=== PATIENT | female | born 1945 | race Caucasian/White ===

== ENCOUNTER → 2018-04-22 08:39 | Outpatient (CLI) | payer OTHER, SELFPAY ==
[2018-04-22 10:43] LABS: Creatinine Urine Random 138.9 mg/dL
[2018-04-22 10:44] LABS: BUN Creatinine Ratio 15.6 (6-22); Blood Urea Nitrogen 14 mg/dL (7-17); Calcium 9.5 mg/dL (8.4-10.2); Carbon Dioxide 28 mmol/L (22-32); Chloride 104 mmol/L (98-107); Estimated Glomerular Filt Rate > 60.0 mL/min (>60); Glucose 129 mg/dL (80-110); HEMOLYSIS < 15 (0-50); Potassium 3.9 mmol/L (3.4-5.1); Sodium 144 mmol/L (137-145)
[2018-04-22 10:50] LABS: Microalbumi Creatinin Ratio Ur 8.6 ug/mg CR (<30); Microalbumin Urine Random 1.2 mg/dL (0-1.6)
[2018-04-22 11:15] LABS: TSH w/ Reflex to FT4 1.07 uIU/mL (0.47-4.68)
== END ==
PROVIDERS: Family Provider Family Medicine; Visit Provider Family Medicine
DX: E03.9 Hypothyroidism, unspecified (principal); I10 Essential (primary) hypertension
CPT/HCPCS: 36415; 80048; 82043; 82570; 84443

== ENCOUNTER → 2018-05-15 15:03 | Outpatient (CLI) | payer OTHER, SELFPAY ==
[2018-05-15 16:35] LABS: BUN Creatinine Ratio 21.4 (6-22); Blood Urea Nitrogen 15 mg/dL (7-17); Estimated Glomerular Filt Rate > 60.0 mL/min (>60)
== END ==
PROVIDERS: Family Provider Family Medicine; PCP Family Medicine; Visit Provider Specialist
DX: C70.0 Malignant neoplasm of cerebral meninges (principal)
CPT/HCPCS: 36415; 82565; 84520

== ENCOUNTER → 2018-10-02 13:05 | Outpatient (CLI) | payer OTHER, SELFPAY ==
[2018-10-02 15:19] LABS: Free T3, Triiodothyronine Free 2.87 pg/mL (2.77-5.27); Free T4, Direct Thyroxine 1.18 ng/dL (0.78-2.19)
[2018-10-02 15:33] LABS: Thyroid Stimulating Hormone 0.49 uIU/mL (0.47-4.68)
== END ==
PROVIDERS: Family Provider Family Medicine; PCP Family Medicine; Visit Provider Family Medicine
DX: E03.9 Hypothyroidism, unspecified (principal)
CPT/HCPCS: 36415; 84439; 84443; 84481

== ENCOUNTER → 2018-12-21 10:04 | Outpatient (CLI) | payer OTHER, SELFPAY ==
--- NOTE | 2018-12-21 | DI.US.S_ITS ---
PROCEDURE: US RENAL COMPLETE INDICATIONS: Benign lipomatous neoplasm of kidney TECHNIQUE: Real-time scanning was performed of the kidneys and bladder, with image documentation. COMPARISON: [facility], , RENAL COMPLETE, 08/27/2015, 10:27. [facility], , RENAL COMPLETE, 09/27/2016, 11:31. FINDINGS: Kidneys: Kidneys are normal in size. Right kidney measures 10.0 cm long; left kidney measures 10.0 cm long. Right renal cortical thickness is 1.3 cm; left renal cortical thickness is 1.2 cm. Renal cortical echotexture is normal. No hydronephrosis or nephrolithiasis. No suspicious solid mass lesions. Presumed angiomyolipoma again seen involving the mid to superior pole the right kidney unchanged measuring 1.4 x 0.9 x 1.2 cm. Bladder: Pre-void bladder volume is 161 mL. Post-void residual is 22 mL. Pre-void images demonstrate no intraluminal masses or stones. On pre-void images, bilateral ureteral jets are noted with color Doppler interrogation. (Of note, ureteral jets may not be detectable in up to 25% of cases due to insufficient differences in specific gravity between ureteral and bladder urine). Miscellaneous: No free pelvic fluid. 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 Dictated by: Kyle VILLASEÑOR Interpreted: Ammy Miles MD on 12/21/2018 at 10:46 Approved by: Ammy Miles M.D. on 12/21/2018 at 14:46
== END ==
PROVIDERS: PCP Internal Medicine; Visit Provider Urology
DX: D17.71 Benign lipomatous neoplasm of kidney (principal)
CPT/HCPCS: 76770

== ENCOUNTER → 2019-02-15 10:13 | Outpatient (CLI) | payer OTHER, SELFPAY ==
--- NOTE | 2019-02-16 08:58 | P.PCN_ITS ---
Cardiac Stress Test Report Referral & Results Date Patient Seen: 02/16/19 Time Patient Seen: 08:30 Requesting provider: Drea Lucas Indication: Chest pain Rest ECG: NSR Procedure Note: Today following both written and verbal informed consent the patient was exercised according to a standard Ron protocol patient went for a total of 5 minutes 50 seconds achieving a maximum heart rate of 149 maximum systolic blood pressure of 220. This is approximately 7.0 METS. Exercise was terminated at this point because of fatigue. Patient was also given Cardiolite through a previously started Hep-Lock IV by the nuclear spectroscopist approximately 1 minute prior to the cessation of exercise. No signs or symptoms of angina. [address] deviations diffusely, resolving rapidly with rest. Functional activity impairment-5% on the active scale. Patient was quite hypertensive during the exam. Occasional PVCs during rest. Impression: Low probability for ischemia. Will await perfusion imaging. Please note: Actual ECG tracings can be found in the PACS system.
--- NOTE | 2019-02-17 06:46 | DI.NM.S_ITS ---
DATE OF SERVICE: 02/15/2019 PROCEDURE: Exercise perfusion study. INDICATIONS: Chest pain and hypertension. RADIOPHARMACEUTICAL: 25.1 mCi technetium-99m Myoview IV was injected at stress and 27.4 mCi technetium-99m Myoview IV was injected at rest. CARDIAC STRESS: The patient underwent an exercise perfusion study under the supervision of an attending staff. She walked on Ron protocol for 5 minutes 50 seconds, achieved 7 METs of workload, 102% of target heartrate. Baseline blood pressure 132/80. Peak blood pressure 220/80, suggestive of hypertensive blood pressure response. The patient felt fatigued. Baseline EKG revealed sinus rhythm. Stress EKG revealed some nonspecific up-sloping ST depression in inferolateral leads, which got resolved in recovery within 1 minute. No significant arrhythmias seen. RAW DATA: Breast shadow was seen. GATED STUDY: Stress LV ejection fraction 73% without any obvious wall motion abnormalities. Resting end-diastolic volume 78 mL. No transient ischemic dilatation. TID ratio 0.90, which is within normal limits. Lung/heart ratio 0.35, which is within normal limits. MYOCARDIAL PERFUSION: Resting supine images revealed small-sized mildly decreased perfusion of the anterior wall. Stress supine and stress prone images revealed normal myocardial perfusion. CONCLUSION: I will call this study a normal myocardial perfusion study without any convincing ischemia infarction. Overall, this is a low-risk myocardial perfusion study. The patient had a myocardial study in February 2009. At that time, also, she had a normal myocardial perfusion.Baseline blood pressure 132/80. Peak blood pressure 220/80, suggestive of hypertensive blood pressure response. Radha Morrissey - CARLEE/otilia/ts doc#: [id number]/job#: [id number] dd: 02/16/2019 16:27:00 dt: 02/17/2019 06:34:00 DICTATING MD/COPIES TO: Vianca Mackey MD COPIES MNE: WES
== END ==
PROVIDERS: PCP Internal Medicine; Visit Provider Internal Medicine
DX: R07.9 Chest pain, unspecified (principal); I10 Essential (primary) hypertension
CPT/HCPCS: 78452; 93016; 93017; 93018; A9502

== ENCOUNTER → 2019-05-29 15:06 | Outpatient (CLI) | payer OTHER, SELFPAY ==
[2019-05-29 17:14] LABS: BUN Creatinine Ratio 18.9 (6-22); Blood Urea Nitrogen 17 mg/dL (7-17); Estimated Glomerular Filt Rate > 60.0 mL/min (>60)
== END ==
PROVIDERS: PCP Internal Medicine; Visit Provider Specialist
DX: C70.0 Malignant neoplasm of cerebral meninges (principal)
CPT/HCPCS: 36415; 82565; 84520

== ENCOUNTER → 2019-06-13 13:47 | Outpatient (CLI) | payer OTHER, SELFPAY | PROVIDERS: PCP Internal Medicine; Visit Provider Internal Medicine | DX: M85.88 Other specified disorders of bone density and structure, other site (principal); Z78.0 Asymptomatic menopausal state; E07.9 Disorder of thyroid, unspecified; Z82.62 Family history of osteoporosis | CPT/HCPCS: 77080; 77081 ==

== ENCOUNTER → 2019-06-27 15:23 | Outpatient (CLI) | payer OTHER, SELFPAY ==
[2019-06-27 17:17] LABS: Blood Urea Nitrogen 18 mg/dL (7-17); Estimated Glomerular Filt Rate > 60.0 mL/min (>60)
== END ==
PROVIDERS: Family Provider Internal Medicine; PCP Internal Medicine; Visit Provider Specialist
DX: C70.0 Malignant neoplasm of cerebral meninges (principal)
CPT/HCPCS: 36415; 82565; 84520

== ENCOUNTER → 2020-02-07 10:23 | Outpatient (CLI) | payer OTHER, SELFPAY ==
[2020-02-07 12:02] LABS: Alanine Aminotransferase 21 IU/L (<35); Albumin 4.1 g/dL (3.5-5.0); Albumin Globulin Ratio 1.5 (1.0-2.8); Alkaline Phosphatase 66 U/L (38-126); Aspartate Aminotransferase 34 IU/L (14-36); Bilirubin Total 0.7 mg/dL (0.2-1.3); Blood Urea Nitrogen 21 mg/dL (7-17); Calcium 9.3 mg/dL (8.4-10.2); Carbon Dioxide 27 mmol/L (22-32); Chloride 105 mmol/L (98-107); Cholesterol 215 mg/dL (140-199); Estimated Glomerular Filt Rate > 60.0 mL/min (>60); Globulin 2.7 g/dL (1.7-4.1); Glucose 95 mg/dL (80-110); HDL Cholesterol 48 mg/dL (40-60); HEMOLYSIS < 15 (0-50); LDL Cholesterol Calculated 139 mg/dL (<100); Sodium 139 mmol/L (137-145); Total Protein 6.8 g/dL (6.3-8.2); Triglycerides 138 mg/dL (35-150)
[2020-02-07 13:00] LABS: Free T4, Direct Thyroxine 1.36 ng/dL (0.78-2.19)
== END ==
PROVIDERS: Family Provider Internal Medicine; PCP Internal Medicine; Referring Provider Internal Medicine; Visit Provider Internal Medicine
DX: C70.0 Malignant neoplasm of cerebral meninges (principal); I10 Essential (primary) hypertension; E78.5 Hyperlipidemia, unspecified; E03.9 Hypothyroidism, unspecified
CPT/HCPCS: 36415; 80053; 80061; 82565; 84439; 84443; 84520

== ENCOUNTER → 2020-06-24 07:40 | Outpatient (CLI) | payer OTHER, SELFPAY ==
[2020-06-24 09:29] LABS: TSH w/ Reflex to FT4 3.46 uIU/mL (0.47-4.68)
== END ==
PROVIDERS: Family Provider Internal Medicine; PCP Internal Medicine; Referring Provider Internal Medicine; Visit Provider Internal Medicine
DX: E03.9 Hypothyroidism, unspecified (principal)
CPT/HCPCS: 36415; 84443

== ENCOUNTER → 2020-07-31 14:49 | Outpatient (ROUT) | payer OTHER, SELFPAY ==
[2020-07-31 14:56] LABS: Add Manual Diff / Slide Review NO; Basophils Absolute Auto 0 /uL (0-100); Basophils Percent Auto 0.4 % (0-2); Eosinophils Absolute Auto 200 /uL (0-450); Eosinophils Percent Auto 2.9 % (2-4); Hematocrit 37.3 % (36-46); Hemoglobin 12.4 g/dL (12.0-16.0); Lymphocytes Absolute Auto 1000 /uL (1100-4500); Lymphocytes Percent Auto 16.3 % (25-40); Mean Corpuscular HGB Conc 33.2 % (30-36); Mean Corpuscular Hemoglobin 31.8 PG (26-34); Mean Corpuscular Volume 95.8 fL (80-100); Monocytes Absolute Auto 500 /uL (0-900); Monocytes Percent Auto 8.9 % (3-14); Neutrophils Absolute Auto 4300 /uL (1500-7000); Neutrophils Percent Auto 71.5 % (50-75); Platelet Count 284 X10^3/uL (150-400); Red Cell Distribution Width 13.2 % (11.6-14.8); White Blood Cell Count 6.1 X10^3/uL (4.5-11.0)
[2020-07-31 15:09] LABS: Alanine Aminotransferase 21 IU/L (<35); Albumin 3.9 g/dL (3.5-5.0); Albumin Globulin Ratio 1.4 (1.0-2.8); Alkaline Phosphatase 60 U/L (38-126); Aspartate Aminotransferase 32 IU/L (14-36); BUN Creatinine Ratio 19.8 (6-22); Bilirubin Total 0.6 mg/dL (0.2-1.3); Blood Urea Nitrogen 17 mg/dL (7-17); Calcium 9.8 mg/dL (8.4-10.2); Carbon Dioxide 31 mmol/L (22-32); Chloride 104 mmol/L (98-107); Cholesterol 241 mg/dL (140-199); Estimated Glomerular Filt Rate > 60.0 mL/min (>60); Globulin 2.8 g/dL (1.7-4.1); Glucose 54 mg/dL (80-110); HDL Cholesterol 63 mg/dL (40-60); HEMOLYSIS < 15 (0-50); LDL Cholesterol Calculated 151 mg/dL (<100); Magnesium 1.8 mg/dL (1.6-2.3); Potassium 4.2 mmol/L (3.4-5.1); Sodium 140 mmol/L (137-145); Total Protein 6.7 g/dL (6.3-8.2); Triglycerides 134 mg/dL (35-150)
[2020-07-31 15:35] LABS: TSH w/ Reflex to FT4 3.31 uIU/mL (0.47-4.68)
== END ==
PROVIDERS: Family Provider Internal Medicine; PCP Internal Medicine; Visit Provider Physician Assistant
DX: R00.2 Palpitations (principal); I10 Essential (primary) hypertension; E78.5 Hyperlipidemia, unspecified; E03.9 Hypothyroidism, unspecified
CPT/HCPCS: 80053; 80061; 83735; 84443; 85025

== ENCOUNTER → 2020-08-07 13:40 | Outpatient (CLI) | payer OTHER, SELFPAY ==
--- NOTE | 2020-08-27 08:50 | P.HOLT.S_ITS ---
Data Deliverables Manager Report Referral & Results Date Patient Seen: 08/07/20 Requesting provider: Debbie Lima Indication: Palpitations Duration of monitoring (days): 7 Diary information: There were 29 patient triggered events and 14 patient diary entries. All of these patient events were associated with (within 45 seconds) sinus rhythm and PACs, no other dysrhythmias were identified Data: Minimum heart rate was 45 beats per minute at 02:38 on 08/10/2020 Maximum sinus heart rate was 144 beats per minute at 17:28 on 08/07/2020 Maximum overall heart rate was 176 beats per minute at 15:41 on 08/12/2020 during a 4 beat run of SVT Less than 1% of identified beats rather ventricular supraventricular ectopic in origin There were 36 runs of SVT with the longest lasting 20 beats at a rate of 106 beats per minute which suggest more atrial tachycardia than true SVT 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 Patient appears to have PACs as potential source of sensation of palpitations based on patient events as above. No other significant dysrhythmias identified on this study.
== END ==
PROVIDERS: Family Provider Internal Medicine; PCP Physician Assistant; Referring Provider Physician Assistant; Visit Provider Physician Assistant
DX: R00.2 Palpitations (principal)
CPT/HCPCS: 93246; 93248

== ENCOUNTER → 2021-02-09 10:43 | Outpatient (CLI) | payer OTHER, SELFPAY ==
--- NOTE | 2021-02-09 | DI.US.S_ITS ---
PROCEDURE: US RENAL COMPLETE INDICATIONS: AML TECHNIQUE: Real-time scanning was performed of the kidneys and bladder, with image documentation. COMPARISON: [facility], , RENAL COMPLETE, 12/21/2018, 10:17. FINDINGS: Kidneys: Kidneys are normal in size. Right kidney measures 9.2 cm long; left kidney measures 10 cm long. Right renal cortical thickness is 1.8 cm; left renal cortical thickness is 1.4 cm. Renal cortical echotexture is normal. No hydronephrosis or nephrolithiasis. Again noted is an echogenic lesion of the upper pole of the right kidney, currently measuring approximately 1.3 x 0.7 x 1.0 cm, and previously measuring approximately 1.4 x 0.9 x 1.2 cm. No new or increasing masses are identified. Bladder: Pre-void bladder volume is 78 mL. Post-void residual is 4 mL. Pre-void images demonstrate no intraluminal masses or stones. On pre-void images, no ureteral jets are noted with color Doppler interrogation. (Of note, ureteral jets may not be detectable in up to 25% of cases due to insufficient differences in specific gravity between ureteral and bladder urine). Miscellaneous: No free pelvic fluid. IMPRESSION: Stable size of probable angiomyolipoma of the upper pole of the right kidney. Dictated by: Donovan Blair M.D. on 02/09/2021 at 17:07 Approved by: Donovan Blair M.D. on 02/09/2021 at 17:10
== END ==
PROVIDERS: Family Provider Internal Medicine; PCP Internal Medicine; Referring Provider Urology; Visit Provider Urology
DX: D17.71 Benign lipomatous neoplasm of kidney (principal)
CPT/HCPCS: 76770

== ENCOUNTER → 2021-02-12 11:35 | Outpatient (CLI) | payer OTHER, SELFPAY ==
[2021-02-12 12:28] LABS: BUN Creatinine Ratio 26.5 (6-22); Blood Urea Nitrogen 22 mg/dL (7-17); Estimated Glomerular Filt Rate > 60.0 mL/min (>60)
== END ==
PROVIDERS: Family Provider Internal Medicine; PCP Internal Medicine; Referring Provider Specialist; Visit Provider Specialist
DX: C70.0 Malignant neoplasm of cerebral meninges (principal)
CPT/HCPCS: 36415; 82565; 84520

== ENCOUNTER → 2021-04-13 09:57 | Outpatient (CLI) | payer OTHER, SELFPAY ==
[2021-04-13 13:41] LABS: COVID19 -Nasal RAPID Negative (Negative)
== END ==
PROVIDERS: Family Provider Internal Medicine; PCP Internal Medicine; Visit Provider Nurse Practitioner Family
DX: Z20.822 Contact with and (suspected) exposure to COVID-19 (principal); Z01.812 Encounter for preprocedural laboratory examination
CPT/HCPCS: 87635; C9803

== ENCOUNTER 2021-04-14 11:47 | Day surgery (SDC) | payer OTHER, SELFPAY ==
[2021-04-14 13:14] VITALS: BP 147/77; PULSE 60; RESP 18; TEMP 36.6; O2SAT 99; BMI 27.4
[2021-04-14] MEDS: SODIUM CHLORIDE 0.9% 1,000 ML 125 ML IV (13:33)
--- NOTE | 2021-04-14 15:28 | P.OP.ENDO_ITS ---
Operative Date/Time/Diagnoses Date of procedure: 04/14/21 Time of procedure: 15:28 Pre-op diagnosis: Chest pain and colon cancer screening Post-op diagnosis: same Procedure & Clinicians Study performed: EGD and colonoscopy Same procedure as scheduled: Yes Indications: Chest pain and colon cancer screening Surgeon: Rodrigo Stone Procedure Notes SCOAP/Timeout: Done Procedure in detail: After the risks and benefits were explained, written and verbal informed consent was obtained. The patient was brought into the procedure room and placed into the left lateral decubitus position. Please see nurse graduation coach sedation notes. scope was introduced into the mouth through the bite block and advanced under direct visualization to the 2nd portion of the duodenum. The scope was slowly withdrawn carefully examining the mucosa for any defects or lesions. Retroflexed views were accomplished in the stomach. The stomach was decompressed, the scope was then removed from the patient who tolerated the procedure well. Patient was then turned around digital rectal examination accomplished no significant pathology appreciated scope was introduced into the rectum and advanced to the cecum as identified by the appendiceal orifice and ileocecal valve. The scope was slowly withdrawn to carefully examine the mucosa for any defects or lesions. Multiple direct views were made through the dentate line for exclusion of pathology. The colon was decompressed the scope removed from the patient who tolerated the procedure well. Bowel prep adequate Pediatric colonoscope Scope withdrawal time: 6 minutes Sedation minutes: 41 Specimen(s): none sent Complications: none Impression: 1. Duodenum: No pathology was appreciated from the bulb through to the 2nd portion. 2. Stomach: No ulcers mass lesions or inflammatory features identified throughout. Retroflexed views of the LES were rather unremarkable. 3. Esophagus: The squamocolumnar junction generally correlated with the top of the gastric folds. The GEJ was at approximately 35 cm from the incisors and the diaphragmatic pinchcock was at approximately 38 cm from the incisors. There was evidence of LA grade B erosive esophagitis. No suggestion of Triplett's no strictures no mass lesions the remainder of the esophagus was rather unremarkable. 4. Colon: The patient had an extremely difficult defecation. Very tortuous corkscrew like colon. No significant mucosal pathology appreciated throughout. Cecal intubation time took approximately 30 minutes. Endoscopic diagnosis 1. LA grade B erosive esophagitis 2. Small sliding hiatal hernia 3. Twisty colon Post-procedure Plan for aftercare: 1. Increase proton pump inhibitor temporarily to twice daily over the next couple of weeks. 2. Follow-up on GI symptoms in the next few months in GI clinic. Disposition: PACU
[2021-04-14 15:31] VITALS: BP 141/75; PULSE 54; RESP 18; TEMP 37.1; O2SAT 94
[2021-04-14 15:36] VITALS: BP 121/66; PULSE 51; RESP 12; O2SAT 100
[2021-04-14 15:41] VITALS: BP 131/67; PULSE 54; RESP 13; O2SAT 97
[2021-04-14 15:46] VITALS: BP 130/68; PULSE 52; RESP 18; O2SAT 99
--- NOTE | 2021-04-14 15:48 | SUR.PHASEI ---
Dr. Stone spoke with pt about taking pantoprazole only once a day but on an empty stomache. Pt was taking it after eating.
[2021-04-14 15:56] VITALS: BP 157/72; PULSE 51; RESP 17; TEMP 37.2; O2SAT 99
--- NOTE | 2021-04-14 16:08 | SUR.PHASEII ---
Ready to go, [facility] called, left unit in stable condition
--- NOTE | 2021-04-14 16:29 | PM.HP.1 ---
History of Present Illness History of Present Illness Date Patient Seen: 04/14/21 Chief complaint: EGD COLONOSCOPY Narrative: No changes beyond recent office visit. Patient History Medical History Chicken pox (1951) Cortical senile cataract Depression (1959) Fractures (1978) Glaucoma, anatomical narrow angle Hypothyroidism (1994) Meningioma of optic nerve sheath Normal Papanicolaou smear Optic atrophy Osteoarthritis (1995) Osteopenia (1989) Plantar warts (1955) Rubella (1949) Tear film insufficiency Surgical History Anesthesia History of colonoscopy with polypectomy (07/30/10) History of knee replacement (06/19/12) History of knee replacement (08/07/14) History of nephrectomy (05/08/10) History of orthopedic surgery (1979) Status post excision of lipoma (07/29/09) Family & Social History Family History Father Heart disease [place] (myocardial infarction) Cataract Hypertension Grandfather Bone cancer Grandmother Kidney failure Mother Hypertension Osteoporosis Breast cancer Migraine TIA (transient ischemic attack) Grandfather Heart disease [place] (myocardial infarction) Grandmother Pulmonary embolism Sister Diabetes mellitus Retinal disorder Renal disease Social History: household members none Tobacco & Substance use: Smoking Status Never smoker alcohol intake current alcohol intake frequency holiday/special occasion Substance Use Type does not use Meds Home Medications and Allergies Home Medications Medication Instructions Recorded Confirmed Type CHOLECALCIFEROL (VITAMIN D3) 2,000 iu PO Q DAY #0 07/16/11 04/14/21 History (Vitamin D) [CALCIUM ] 1,300 mg PO QDAY #0 06/12/12 08/23/18 History citalopram 20 mg tablet (Celexa) 20 mg PO QDAY #90 tab 11/08/18 04/14/21 Rx levothyroxine 88 mcg tablet See Rx Instructions .ROUTE 03/14/19 04/14/21 Rx .COMPLEX #90 tablet losartan 50 mg tablet 50 mg PO BID 04/14/21 04/14/21 History pantoprazole 40 mg tablet,delayed 40 mg PO DAILY 04/14/21 04/14/21 History release rosuvastatin 5 mg tablet 5 mg PO DAILY 04/14/21 04/14/21 History Allergies Allergy/AdvReac Type Severity Reaction Status Date / Time chlorhexidine [CHLORHEXIDINE] Allergy Mild RASH Verified 04/14/21 13:06 PLASTIC TAPE Allergy Mild RASH Uncoded 04/14/21 13:06 Review of Systems Review of Systems ROS: Yes All systems reviewed with the patient and are negative except as otherwise documented Exam Vital Signs (past 8 hours): Oxygen Delivery Method Room Air Const General: cooperative and comfortable Orientation: alert HENID Head: normocephalic Ears: external ears normal Nose: external nose normal Face and sinus: normal facial exam Mouth: oral mucosae normal Eyes General: appearance normal, both eyes and all related structures Neck Neck: normal visual inspection Chest Chest: normal inspection of the chest Resp Effort & Inspection: normal respiratory effort Auscultation: clear to auscultation bilaterally Cardio Rate: regular rate Rhythm: regular rhythm Heart Sounds: no murmurs GI Inspection: normal to inspection Palpation: soft and No tender Auscultation: normal bowel sounds Skin General: no rashes or lesions noted and No jaundice Neuro General: patient alert and moves all extremities Cognition: normal cognition Speech: speech normal Extrem General: no pedal edema Psych Appearance: grossly normal Assessment & Plan Assessment & Plan narrative: chest pain. colon cancer screening. Proceed with egd and colon. Time Spent With Patient Critical Care time: I spent a total of [] minutes of critical care time on this patient's care today; this time is exclusive of procedural time.
== END 2021-04-14 16:07 | disposition home or self-care (01) ==
PROVIDERS: Family Provider Internal Medicine; PCP Internal Medicine; Referring Provider Internal Medicine Gastroenterology; Visit Provider Internal Medicine Gastroenterology
PROC: 0DJ08ZZ Inspection of Upper Intestinal Tract, Via Natural or Artificial Opening Endoscopic (ICD-10-PCS; CPT 43235; principal; 2021-04-14 13:00)
PROC: 0DJD8ZZ Inspection of Lower Intestinal Tract, Via Natural or Artificial Opening Endoscopic (ICD-10-PCS; CPT 45378; 2021-04-14 13:00)
DX: Z12.11 Encounter for screening for malignant neoplasm of colon (principal); R07.89 Other chest pain; K20.80 Other esophagitis without bleeding; K44.9 Diaphragmatic hernia without obstruction or gangrene
CPT/HCPCS: 43235; G0121; J2704

== ENCOUNTER → 2021-04-29 12:29 | Outpatient (CLI) | payer OTHER, SELFPAY ==
[2021-04-29 13:24] LABS: Add Manual Diff / Slide Review NO; Basophils Absolute Auto 0 /uL (0-100); Basophils Percent Auto 0.5 % (0-2); Eosinophils Absolute Auto 200 /uL (0-450); Eosinophils Percent Auto 2.8 % (2-4); Hemoglobin 11.9 g/dL (12.0-16.0); Lymphocytes Absolute Auto 1200 /uL (1100-4500); Mean Corpuscular HGB Conc 32.9 % (30-36); Mean Corpuscular Hemoglobin 31.1 PG (26-34); Mean Corpuscular Volume 94.3 fL (80-100); Monocytes Absolute Auto 600 /uL (0-900); Monocytes Percent Auto 9.9 % (3-14); Neutrophils Absolute Auto 4300 /uL (1500-7000); Neutrophils Percent Auto 67.8 % (50-75); Platelet Count 285 X10^3/uL (150-400); Red Blood Cell Count 3.82 X10^6/uL (4.0-5.2); Red Cell Distribution Width 12.9 % (11.6-14.8); White Blood Cell Count 6.4 X10^3/uL (4.5-11.0)
== END ==
PROVIDERS: Family Provider Internal Medicine; PCP Internal Medicine; Referring Provider Internal Medicine Gastroenterology; Visit Provider Internal Medicine Gastroenterology
DX: K92.1 Melena (principal)
CPT/HCPCS: 36415; 85025

== ENCOUNTER → 2022-03-06 08:54 | Outpatient (CLI) | payer OTHER, SELFPAY ==
[2022-03-06 09:19] LABS: Blood Urea Nitrogen 18 mg/dL (7-17); Estimated Glomerular Filt Rate > 60 mL/min (>60)
== END ==
PROVIDERS: Family Provider Internal Medicine; PCP Internal Medicine; Referring Provider Specialist; Visit Provider Specialist
DX: C70.0 Malignant neoplasm of cerebral meninges (principal)
CPT/HCPCS: 36415; 82565; 84520

== ENCOUNTER → 2023-03-22 14:10 | Outpatient (CLI) | payer OTHER, SELFPAY ==
[2023-03-22 16:32] LABS: BUN Creatinine Ratio 24.4 (6-22); Blood Urea Nitrogen 19 mg/dL (7-17); Estimated Glomerular Filt Rate > 60 mL/min (>60)
== END ==
PROVIDERS: Family Provider Internal Medicine; PCP Internal Medicine; Referring Provider Specialist; Visit Provider Specialist
DX: D32.0 Benign neoplasm of cerebral meninges (principal)
CPT/HCPCS: 36415; 82565; 84520

== ENCOUNTER 2024-12-17 03:17 | Emergency (ER) | payer MEDICARE, SELFPAY ==
[2024-12-17 03:40] VITALS: BP 144/85; PULSE 82; RESP 18; TEMP 36.1; O2SAT 97
--- NOTE | 2024-12-17 03:44 | ED.GENADULT ---
HPI - General Adult General Stated complaint: Cat Bite Time Seen by Provider: 12/17/24 03:43 History of Present Illness HPI narrative: 79-year-old female sustained cat bite to the dorsum of her right hand 6:00 p.m. last night, with increasing swelling since that time. No fevers or chills. Last tetanus shot greater than 5 years ago. Not currently on antibiotics. No other areas of wound. She can clench fist and extend her palm well. No redness or streaking to the right wrist or forearm. She took Tylenol prior to arrival, pain is improved. Related Data Home Medications Medication Instructions Recorded Confirmed CHOLECALCIFEROL (VITAMIN D3) 2,000 iu PO Q DAY ##0 07/16/11 04/14/21 (Vitamin D) [CALCIUM ] 1,300 mg PO QDAY ##0 06/12/12 08/23/18 losartan 50 mg tablet 50 mg PO BID 04/14/21 04/14/21 pantoprazole 40 mg tablet,delayed 40 mg PO DAILY 04/14/21 04/14/21 release rosuvastatin 5 mg tablet 5 mg PO DAILY 04/14/21 04/14/21 Previous Rx's Medication Instructions Recorded citalopram 20 mg tablet (Celexa) 20 mg PO QDAY #90 tabs 11/08/18 levothyroxine 88 mcg tablet See Rx Instructions .Route 03/14/19 .COMPLEX #90 tabs amoxicillin 875 mg-potassium 1 tab PO BID #14 tabs 12/17/24 clavulanate 125 mg tablet Allergies Allergy/AdvReac Type Severity Reaction Status Date / Time chlorhexidine [CHLORHEXIDINE] Allergy Mild RASH Verified 04/14/21 13:06 PLASTIC TAPE Allergy Mild RASH Uncoded 04/14/21 13:06 Patient History Medical History Chicken pox (1951) Cortical senile cataract Depression (1959) Fractures (1978) Glaucoma, anatomical narrow angle Hypothyroidism (1994) Meningioma of optic nerve sheath Normal Papanicolaou smear Optic atrophy Osteoarthritis (1995) Osteopenia (1989) Plantar warts (1955) Rubella (1949) Tear film insufficiency Surgical History Anesthesia History of colonoscopy with polypectomy (07/30/10) History of knee replacement (06/19/12) History of knee replacement (08/07/14) History of nephrectomy (05/08/10) History of orthopedic surgery (1979) Status post excision of lipoma (07/29/09) Family History Father Heart disease [place] (myocardial infarction) Cataract Hypertension Grandfather Bone cancer Grandmother Kidney failure Mother Hypertension Osteoporosis Breast cancer Migraine TIA (transient ischemic attack) Grandfather Heart disease [place] (myocardial infarction) Grandmother Pulmonary embolism Sister Diabetes mellitus Retinal disorder Renal disease Social History household members: none alcohol intake: current alcohol intake frequency: holidays/special occasions only Exam Narrative Exam Narrative: GENERAL: Well-developed patient, in mild distress. HEAD: Atraumatic. Normocephalic. EYES: Pupils equal round and reactive. Extraocular motions intact. No scleral icterus. No injection or drainage. ENT: Nose without bleeding, purulent drainage. Throat without erythema, tonsillar hypertrophy or exudate. Airway patent. NECK: Trachea midline. Non tender CARDIOVASCULAR: Regular rate and rhythm without murmurs, gallops, or rubs. RESPIRATORY: Clear to auscultation. Breath sounds equal bilaterally. No wheezes, rales, or rhonchi. GASTROINTESTINAL: Abdomen soft, non-tender, nondistended. EXTREMITIES: Small puncture wound times 4 dorsum of right hand, with 3.5 cm diameter area of erythema. She can close fist just short of full, she can fully extend her fingers and palm. No redness or swelling to the wrist or forearm. BACK: Nontender without deformity or crepitance. No flank tenderness. NEURO: AOx3. Motor functions grossly nonfocal SKIN: No rash or erythema of visible areas Course Orders Ordered: Discontinued Medications Amoxicillin/Clavulanate Potassium (Amoxicillin/Clav 875/125 Mg) 1 tab PO NOW ONE Stop: 12/17/24 03:54 Diphtheria/Tetanus/Acell Pertussis (Tet,Diph,Pertuss(Acell),Vac/Pf 0.5 Ml Syringe) 0.5 ml IM .ONCE ONE Stop: 12/17/24 03:54 Medical Decision Making MDM Narrative Medical decision making narrative: 79-year-old female with cat bite from her own vaccinated cats, small puncture wounds dorsum of the right hand, with some swelling. Declines x-ray when offered. Amenable to tetanus when suggested, IM Tdap. We will give initial oral dose Augmentin, prescription sent to her pharmacy. Advised wound check in 2 days with the regular provider. Return precautions discussed. Discharge Plan Departure Patient Disposition: Home Clinical Impression: Cat bite of hand Activity Restrictions/Additional Instructions: Dorsal hand cat bite from fully vaccinated domestic cat 6:00 p.m. last night, with swelling and redness to the dorsum of the hand. Likely cellulitis. No known allergies to penicillin/amoxicillin. Prescription for Augmentin (amoxicillin with clavulanic acid) sent to your pharmacy, 1st oral dose given in the emergency department. Take antibiotic course as prescribed. X-rays of the right hand discussed, you declined these for now, to look for any broken tooth fragment foreign bodies that might be retained, and to look for any fracture of the bone changes. Take [id number] Tylenol and or Motrin as needed for pain control. Recheck wound in your hand with your regular doctor in 2 days. Return earlier to this/nearest emergency department for any change worsening symptoms or any concerns prior. Prescriptions: New amoxicillin-pot clavulanate 875-125 mg tablet 1 tab PO BID Qty: 14 0RF No Action CHOLECALCIFEROL (VITAMIN D3) (Vitamin D) 2,000 iu PO Q DAY Qty: 0 [CALCIUM ] 1,300 mg PO QDAY Qty: 0 citalopram [Celexa] 20 mg tablet 20 mg PO QDAY Qty: 90 0RF levothyroxine 88 mcg tablet See Rx Instructions .ROUTE .COMPLEX Qty: 90 1RF Dose Instruction: Take 1 tablet by mouth every morning. Rx Instructions: Take 1 tablet by mouth every morning. rosuvastatin 5 mg tablet 5 mg PO DAILY pantoprazole 40 mg tablet,delayed release (DR/EC) 40 mg PO DAILY losartan 50 mg tablet 50 mg PO BID Referrals: Candace Tate MD [Primary Care Provider] - Stand Alone Forms: Patient Portal/API/Survey
[2024-12-17] MEDS: TET,DIPH,PERTUSS(ACELL),VAC/PF 0.5 ML SYRINGE IM (04:30)
[2024-12-17] MEDS: AMOXICILLIN/CLAV 875/125 MG 1 TAB PO (04:30)
== END 2024-12-17 04:40 | disposition home or self-care (01) ==
PROVIDERS: Emergency Provider Emergency Medicine; Family Provider Internal Medicine; PCP Internal Medicine
DX: S61.451A Open bite of right hand, initial encounter (principal); W55.01XA Bitten by cat, initial encounter; Z23 Encounter for immunization
CPT/HCPCS: 90471; 99283; 90715

== ENCOUNTER 2025-04-15 15:59 | Emergency (ER) | payer MEDICARE, SELFPAY ==
[2025-04-15 16:48] VITALS: BP 159/81; PULSE 65; RESP 15; O2SAT 97; BMI 27.4
--- NOTE | 2025-04-15 16:59 | EKG_ITS ---
[place] [id number] [place] [id number] Test Date: 2025-04-15 Pat Name: Radha Morrissey Department: [facility] Room: Gender: Female Public Relations Officer: LUCITA : 1945 Requested By: Order Number: [id number] Reading MD: Phil Daly Measurements Intervals [place] Rate: 60 P: 65 OR: 136 QRS: -7 QRSD: 78 T: 55 QT: 424 QTc: 424 Interpretive Statements Normal sinus rhythm with sinus arrhythmia Electronically Signed On 04-17-2025 8:12:58 PDT by Phil Daly
[2025-04-15 18:29] VITALS: PULSE 60; O2SAT 100
[2025-04-15 18:30] VITALS: PULSE 60; O2SAT 99
--- NOTE | 2025-04-15 18:32 | ED.ARRPALP ---
HPI - Arrhythmia/Palpitations General Chief Complaint: Arrhythmia/Palpitations Stated Complaint: [facility] sent fopr ekg Time Seen by Provider: 04/15/25 18:26 Source: patient Mode of arrival: Ambulatory History of Present Illness HPI narrative: Patient is a healthy 79-year-old female presenting to day request of PCP. She reports that over the last 9 months she has had more heart problems at night. She is quite worried because all of her friends have atrial fibrillation and she is worried she might have that. At night she sometimes feels her heart pounding she feels like it is happening more frequently. Sometimes she has burning in her chest in the bad taste in her mouth. She did have an episode last night. She denies any chest pain or palpitations today. She is not short of breath. She has an appointment with her PCP tomorrow however she called their office and they recommended that she come into the ED. She has now been in the ED for a number of hours. She reports that there is really nothing new today. She really reports palpitations at nighttime only and not during the day, she is quite anxious and worried about if she has a AFib will feel like and look like in the daytime. She currently has a sinus rhythm and her EKGs Related Data Home Medications ?Medication ?Instructions ?Recorded ?Confirmed CHOLECALCIFEROL (VITAMIN D3) 2,000 iu PO Q DAY ##0 07/16/11 04/14/21 (Vitamin D) [CALCIUM ] 1,300 mg PO QDAY ##0 06/12/12 08/23/18 losartan 50 mg tablet 50 mg PO BID 04/14/21 04/14/21 pantoprazole 40 mg tablet,delayed 40 mg PO DAILY 04/14/21 04/14/21 release rosuvastatin 5 mg tablet 5 mg PO DAILY 04/14/21 04/14/21 Previous Rx's ?Medication ?Instructions ?Recorded citalopram 20 mg tablet (Celexa) 20 mg PO QDAY #90 tabs 11/08/18 levothyroxine 88 mcg tablet See Rx Instructions .Route 03/14/19 .COMPLEX #90 tabs amoxicillin 875 mg-potassium 1 tab PO BID #14 tabs 12/17/24 clavulanate 125 mg tablet Allergies Allergy/AdvReac Type Severity Reaction Status Date / Time chlorhexidine (CHLORHEXIDINE) Allergy Mild RASH Verified 04/14/21 13:06 PLASTIC TAPE Allergy Mild RASH Uncoded 04/14/21 13:06 Patient History Medical History Chicken pox (1951) Cortical senile cataract Depression (1959) Fractures (1978) Glaucoma, anatomical narrow angle Hypothyroidism (1994) Meningioma of optic nerve sheath Normal Papanicolaou smear Optic atrophy Osteoarthritis (1995) Osteopenia (1989) Plantar warts (1955) Rubella (1949) Tear film insufficiency Surgical History Anesthesia History of colonoscopy with polypectomy (07/30/10) History of knee replacement (06/19/12) History of knee replacement (08/07/14) History of nephrectomy (05/08/10) History of orthopedic surgery (1979) Status post excision of lipoma (07/29/09) Family History Father Heart disease MA (myocardial infarction) Cataract Hypertension Grandfather Bone cancer Grandmother Kidney failure Mother Hypertension Osteoporosis Breast cancer Migraine TIA (transient ischemic attack) Grandfather Heart disease MA (myocardial infarction) Grandmother Pulmonary embolism Sister Diabetes mellitus Retinal disorder Renal disease Social History household members: none Smoking Status: Never smoker alcohol intake: current Smoking Status: Never smoker alcohol intake frequency: holidays/special occasions only Exam Initial Vital Signs Initial Vital Signs: Vital Signs Pulse Rate 65 04/15/25 16:48 Respiratory Rate 15 04/15/25 16:48 Blood Pressure 159/81 H 04/15/25 16:48 Pulse Oximetry 97 04/15/25 16:48 Oxygen Delivery Method Room Air 04/15/25 16:48 GENERAL: Alert pleasant anxious 79-year-old female and in no acute distress. HEENT: Head atraumatic,EOMI, pupils reactive, face symmetric, moist mucous membranes CARDIOVASCULAR: Regular rate and rhythm without murmurs, rubs or gallops. RESPIRATORY: Breath sounds equal bilaterally, no wheezes rales or rhonchi. ABDOMEN: Soft, nontender. Normoactive bowel sounds all 4 quadrants. No guarding or rebound. EXTREMITIES: Normal range of motion, no clubbing or edema. Neurovascularly intact NEUROLOGICAL: Alert and oriented x4.Normal gait and speech. Cranial nerves II through XII grossly intact. SKIN: Warm, dry, no laceration, no petechiae, no rashes or lesions. Course Orders Ordered: ED Orders 04/15/25 16:59 EKG-12 Lead Stat Vital Signs Vital signs: Vital Signs - 8 hr 04/15/25 16:48 04/15/25 18:29 04/15/25 18:30 Pulse Rate 65 60 60 Respiratory Rate 15 Blood Pressure 159/81 H Pulse Oximetry 97 100 99 Oxygen Delivery Method Room Air 04/15/25 19:22 Pulse Rate 54 L Respiratory Rate 16 Blood Pressure 149/82 H Pulse Oximetry 96 Oxygen Delivery Method Room Air MDM - Arrhythmia/Palpitations ECG Data Attestation: I personally reviewed and interpreted this ECG as follows: Prior ECG tracings: available for review Interpretation: Sinus rhythm rate 60 FL interval 136 QRS [address] changes similar to previous EKGs in 2015 MDM Narrative Medical decision making narrative: Patient 79-year-old female presenting today with palpitations but only at night. She is not having palpitations now she is adamant that she does not have any chest pain or shortness of breath she really only has symptoms at night sometimes it does sound like acid reflux with burning and abnormal taste in her mouth. She did have an episode of palpitations last night but none today. Last night he is not any different than any of the other nights 9 much previous. She is worried she is going on car trip in his worried about what might happen. She sees her PCP tomorrow. Talked at length with patient discussed blood work encouraged her to get blood work however she declines at this time. EKGs overall reassuring with a sinus arrhythmia. Heart rate was 66 at the walk-in clinic she has never been tachycardic that we know of here and has no EKGs changes. Not wanting blood work today. Discharge Plan Departure Patient Disposition: Home Clinical Impression: Palpitations Instructions: DI for Palpitations Activity Restrictions/Additional Instructions: *You have been diagnosed with palpitations *What to do: At this time please follow-up with your primary care provider you may need a heart monitor encourage you to get blood work as *Continue to take medications as directed *Follow up with your primary care provider in 2-3 days or call [phone] *Return to ER if you should have increasing chest pain palpitations shortness of breath weakness [or] any new, worsening or concerning symptoms Prescriptions: No Action CHOLECALCIFEROL (VITAMIN D3) (Vitamin D) 2,000 iu PO Q DAY Qty: 0 [CALCIUM ] 1,300 mg PO QDAY Qty: 0 citalopram [Celexa] 20 mg tablet 20 mg PO QDAY Qty: 90 0RF levothyroxine 88 mcg tablet See Rx Instructions .ROUTE .COMPLEX Qty: 90 1RF Dose Instruction: Take 1 tablet by mouth every morning. Rx Instructions: Take 1 tablet by mouth every morning. rosuvastatin 5 mg tablet 5 mg PO DAILY pantoprazole 40 mg tablet,delayed release (DR/EC) 40 mg PO DAILY losartan 50 mg tablet 50 mg PO BID amoxicillin-pot clavulanate 875-125 mg tablet 1 tab PO BID Qty: 14 0RF Referrals: Candace Tate MD [Primary Care Provider, Internal Medicine] Stand Alone Forms: Patient Portal/API
[2025-04-15 19:22] VITALS: BP 149/82; PULSE 54; RESP 16; O2SAT 96
== END 2025-04-15 19:00 | disposition home or self-care (01) ==
PROVIDERS: Emergency Provider Emergency Medicine; Family Provider Internal Medicine; PCP Internal Medicine
DX: R00.2 Palpitations (principal)
CPT/HCPCS: 93005; 99281; 99283